=== PATIENT | male | born 1975 | race African-American/Black ===

== ENCOUNTER 2021-06-25 15:44 | Emergency (ER) | payer OTHER, MEDICAID ==
[~2021-06-25] VITALS: Ht 188 cm; Wt 72.6 kg
--- NOTE | 2021-06-25 17:25 | NUR ---
Patient to ER TRIAGE to gown for evaluation. Side rails up.
--- NOTE | 2021-06-25 17:26 | NUR ---
ER at bedside examining patient.
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
[2021-06-25 17:30] VITALS: BP_SYST 126
--- NOTE | 2021-06-25 17:30 | NUR ---
Patient LEFT BEFORE RECEIVING written and verbal discharge instructions and verbalizes understanding. ER MD discussed with patient the results and treatment provided. Patient in stable condition. ID arm band removed. NO Rx of given. Patient educated on pain management and to follow up with PMD. Pain Scale 3. Opportunity for questions provided and answered. Medication side effect fact sheet provided.
[2021-06-25] MEDS ORDERED: CYCL10TA24 PO (19:13)
[2021-06-25] MEDS ORDERED: LIDO700A30 TP (19:13)
== END 2021-06-25 17:30 | disposition home or self-care (01) ==
LOC: SED 15:44
DX: F07.81 Postconcussional syndrome (principal); M54.2 Cervicalgia; M54.89 Other dorsalgia; I10 Essential (primary) hypertension; Z79.899 Other long term (current) drug therapy; V49.49XA Driver injured in collision with other motor vehicles in traffic accident, initial encounter; Y93.89 Activity, other specified; Y92.89 Other specified places as the place of occurrence of the external cause; Y99.8 Other external cause status
CPT/HCPCS: 99283